=== PATIENT | male | born 1965 | race Caucasian/White ===

== ENCOUNTER 2017-09-06 10:30 | Inpatient (IN) | payer OTHER ==
[2017-09-06 11:09] LABS: PLATELET COUNT 220 10^3/uL (150-400)
--- NOTE | 2017-09-06 11:10 | CPEKG ---
Heart Rate: 81 RR Interval: 741 P-R Interval: 168 QRSD Interval: 106 QT Interval: 424 QTC Interval: 493 P [place]: 46 QRS [place]: 98 T Wave [place]: -12 EKG Severity - ABNORMAL ECG - EKG Impression: SINUS RHYTHM EKG Impression: CONSIDER RIGHT VENTRICULAR HYPERTROPHY EKG Impression: BORDERLINE T ABNORMALITIES, INFERIOR LEADS EKG Impression: BORDERLINE PROLONGED QT INTERVAL Electronically Signed By: Radha Chatman 06-Sep-2017 15:18:15
[2017-09-06] MEDS ORDERED: NS 1,000 ML IV ONE ×2 (11:35→11:46)
[2017-09-06 11:57] LABS: INR 1.14 (0.83-1.16); PROTIME(PATIENT) 14.8 SEC (12.0-15.0)
--- NOTE | 2017-09-06 12:27 | EDPHY ---
H & P Smoking Status: Never smoked Time Seen by Provider: 09/06/17 10:49 HPI/ROS: CHIEF COMPLAINT: Intentional drug overdose HISTORY OF PRESENT ILLNESS: 51-year-old male presents to the emergency department on M1 hold by ambulance after stating that he intentionally tried to overdose on medication in an attempt to kill himself. The patient admits to taking 25 tablets of 50 mg hydroxyzine and 25 tablets of 5 -7.5 mg Percocet around 6:30 p.m. last evening. He admits to also drinking alcohol. He states "it did not work ". He feels nauseous. He vomited several times last night. He denies abdominal pain. Denies chest pain or difficulty breathing. His states that he left a note stating that he was "sorry ". She called the police and they have been looking for him for the last 15 hr. Patient stills feels that he is suicidal. He states that he business transaction fell through yesterday. His is worried that he has underlying depression that has never been treated. He states he still feels nauseous. He denies abdominal pain. He was experiencing some numbness to the anterior aspect of his left thigh last week. He denies weakness in his upper or lower extremities. REVIEW OF SYSTEMS: Constitutional: No fever, no chills. Eyes: No double or blurry vision. ENT: No sore throat. Respiratory: No cough, no shortness of breath. Cardiac: No chest pain. Gastrointestinal: Nausea, vomiting. No abdominal pain or diarrhea. Genitourinary: No dysuria. Musculoskeletal: No neck or back pain. Skin: No rashes. Neurological: No headache. 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 No visible signs of trauma to his head. He is mentating normally and answering questions appropriately. Blood pressure 130/78, heart rate 90, respirations 16, 36.9 temperature, 92% on room air. at bedside. Eyes: Pupils equal and round. Extraocular motions are all intact. ENT: Mouth: Mucous membranes moist. Respiratory: No wheezing, rhonchi, or rales, lungs are clear to auscultation. Cardiovascular: Regular rate and rhythm. Gastrointestinal: Abdomen is soft and nontender, no masses, no rebound or guarding, bowel sounds normal. Neurological: Alert and oriented x 3, cranial nerves II through XII grossly intact Skin: Warm and dry, no rashes. Musculoskeletal: Nontender to palpate along the cervical, thoracic or lumbar spine. Neck is supple. Extremities: Full range of motion and no peripheral edema. Psychiatric: Patient is oriented X 3, there is no agitation. (KimberlynJune campos) Constitutional: Initial Vital Signs Temperature (C) 36.9 C 09/06/17 10:35 Heart Rate 90 09/06/17 10:35 Respiratory Rate 16 09/06/17 10:35 Blood Pressure 130/78 H 09/06/17 10:35 O2 Sat (%) 92 09/06/17 10:35 O2 Delivery Mode Room Air O2 (L/minute) 2 Allergies/Adverse Reactions: No Known Allergies Allergy (Unverified 09/06/17 10:35) Home Medications: Medication Instructions Recorded Herbals/Supplements -Info Only 1 ea PO DAILY 09/06/17 Naproxen Sodium [Aleve 220 MG (*)] 220 mg PO BID PRN 09/06/17 Medical Decision Making ED Course/Re-evaluation: 51-year-old male presents on M1 hold after intentional drug overdose. The patient still feels suicidal. Laboratory studies have been drawn. I spoke with poison Control, case #[id number], and they recommended cardiac monitoring for at least 6-8 hours associated with the hydroxyzine. Poison Control nurse, Dana, recommended that the patient be kept on a residential monitor for longer period of time since he is still symptomatic. The patient will be admitted to the ICU on an M1 hold for continued observation. When the patient is medically cleared, he will be evaluated by mental health. Laboratory studies reveal white blood cell count of 11.48. His hemoglobin and hematocrit are within normal range. Platelets are normal. Chemistries reveal a detectable acetaminophen level at 23 which will need to be repeated. AST is 81. ALT is normal. INR is normal at 1.14. Alcohol and salicylate 0. (June Hancock) This patient was seen and examined by me. He is drowsy, chest is clear to auscultation, cardiovascular regular rhythm and rate. He presents after a suicidal attempt with drowsiness. He is on a M1 hold and is certainly at high risk for suicide. I agree with the assessment and plan. (Radha Chatman) Differential Diagnosis: Depression including functional and major depression, situational depression, medication side effect, drugs and alcohol abuse. (June Hancock) Critical Care Time: Critical care time: 20 minutes (Radha Chatman) - Data Points Laboratory Results: Laboratory Results 09/06/17 10:40 09/06/17 10:40 Medications Given: Sodium Chloride (Ns) 1,000 mls @ 100 mls/hr IV CONT AUDREY Stop: 03/05/18 14:59 Last Admin: 09/06/17 15:22 Dose: 1,000 mls Acetylcysteine 8,000 mg/ (Dextrose) 1,040 mls @ 65 mls/hr IV ONCE ONE Stop: 09/07/17 12:29 Last Admin: 09/06/17 21:19 Dose: 1,040 mls Discontinued Medications Sodium Chloride (Ns) 1,000 mls @ 0 mls/hr IV ONCE ONE PRN Reason: Wide Open Stop: 09/06/17 11:36 Last Admin: 09/06/17 11:35 Dose: 1,000 mls Sodium Chloride (Ns) 1,000 mls @ 0 mls/hr IV ONCE ONE PRN Reason: Wide Open Stop: 09/06/17 11:47 Last Admin: 09/06/17 11:49 Dose: Not Given Acetylcysteine 12,000 mg/ (Dextrose) 260 mls @ 260 mls/hr IV ONCE ONE Stop: 09/06/17 16:29 Last Admin: 09/06/17 15:43 Dose: 260 mls Acetylcysteine 4,000 mg/ (Dextrose) 520 mls @ 130 mls/hr IV ONCE ONE Stop: 09/06/17 20:29 Last Admin: 09/06/17 16:51 Dose: 520 mls Departure - Departure Disposition: [facility] Acute Clinical Impression: Intentional drug overdose Qualifiers: Encounter type: initial encounter Qualified Code(s): T50.902A - Poisoning by unspecified drugs, medicaments and biological substances, intentional self-harm , initial encounter Condition: Fair
[2017-09-06 12:34] LABS: CREATINE KINASE 3073 IU/L (0-224)
[2017-09-06] MEDS ORDERED: PROMETHAZINE HCL 25 MG/ML INJ IVP PRN (14:49)
[2017-09-06] MEDS ORDERED: ACETYLCYSTEINE IV PROTOCOL 1 EACH MISC SCH (15:00)
[2017-09-06] MEDS ORDERED: NS 1,000 ML IV SCH (15:00)
[2017-09-06] MEDS ORDERED: ACETYLCYSTEINE IV ONE ×3 (15:30→20:30)
[2017-09-06] MEDS ORDERED: D5W IV ONE ×3 (15:30→20:30)
--- NOTE | 2017-09-06 16:03 | GHP ---
[f rep st] HISTORY AND PHYSICAL DATE OF ADMISSION: 09/06/2017 CHIEF COMPLAINT: Suicide attempt. HISTORY: The patient is a 51-year-old male, admitted to the ICU on an M1 hold after an intentional o verdose. At 6:30 last night, he intentionally took twenty-five 7.5 mg oxycodone containing Percocets including Tylenol as well as twenty-five 50 mg Vistaril tablets. He also drank some alcohol. He zafar s never had any chest pain or shortness of breath, and he felt quite well other than his depression. There were no physical complaints prior to this attempt. He did develop some nausea and vomiting. He left a note for his that said "I'm sorry" which was found by his , and she called the [facility] last night. They spent 15 hours before they were able to locate him. He was in his car in a par [place]. At this time, he is still suicidal. He complains of a business transaction that fell through yes terday as triggering this event. According to his , however, she feels he has had a more long-st anding untreated depression. He is currently feeling quite well with minimal nausea and otherwise wi thout complaint although still feeling despondent and somewhat suicidal. PAST MEDICAL HISTORY: Hyperlipidemia. MEDICATIONS: Red yeast rice. ALLERGIES: No known drug allergies. SOCIAL HISTORY: No smoking. Rare alcohol. Lives with his . 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 REVIEW OF SYSTEMS: Complete review of systems obtained. Review of systems negative on constitutiona l, HEENT, GI, pulmonary, cardiovascular, , hematology, skin, muscular, endocrine, psych except for positives and negatives as noted in HPI. FAMILY HISTORY: Mother of lung cancer. Father of an intracranial hemorrhage after a fall. PHYSICAL EXAMINATION: GENERAL: Well-developed, well-nourished male, in no acute distress. VITAL SI GNS: Temperature is 36.9, pulse 81, respirations initially 10, blood pressure 110/70, saturating 92% on room air. EYES: Normal conjunctivae. Pupils react to light. ENT: Normal ears, nose. Hearing intact. Normal teeth. Oropharynx moist. NECK: Trachea midline. No thyromegaly. CHEST: Normal respiratory effort. LUNGS: Clear to auscultation bilaterally. CARDIOVASCULAR: Regular rate, rhyth m. No murmur. No extremity edema. ABDOMEN: Soft, nontender. No hepatosplenomegaly. SKIN: Warm, dry, intact. No rash. MUSCULOSKELETAL: No cyanosis or clubbing. Strength 5/5 upper and lower ext remities. NEUROLOGIC: Cranial nerves intact. Normal sensation to light touch. PSYCH: Alert and o riented x3. Normal mood and affect. Normal judgment. Normal memory. LABORATORY DATA: White count 11.48, hematocrit 51.7, platelets 220. Sodium 142, potassium 5.0, chlo ride 101, bicarb 18, BUN 26, creatinine 1.2, glucose 118. LFTs are normal except for an AST of 81. CPK is elevated at 3073. Tylenol level at 10:40 a.m. today is 23. EKG viewed. My personal interpretation is significant deep anterior T-wave inversions. This case was discussed with June Hancock, emergency room physician minister assistant regarding emergency ro om course. Poison Control was called, [phone]. They recommended cardiac monitoring for at least 8 hours due to potential cardiac affects of Vistaril and repeat Tylenol testing. ASSESSMENT/PLAN: 1. Tylenol overdose. A Tylenol level of 2316 post ingestion is actually over the treatment line on the Tylenol normogram. In that case, treatment with N-acetylcysteine is indicated. I will initiate him on the 20-hour IV N-acetylcysteine protocol and follow serial LFTs, INR, and Tylenol levels. 2. Vistaril overdose. Risk of Vistaril includes QT prolongation and torsades. Will monitor him on telemetry and avoid additional QT prolonging agents. 3. Anterior T-wave inversions. These are concerning for possible ischemia. Although he denies any symptoms, will check a couple troponins and follow serial EKGs I wonder if the anticholinergic effect of the Vistaril may be causing some EKG changes. He may benefit from an eventual stress test althou gh this could potentially be deferred to outpatient. 4. Suicidality and depression. This is ongoing. Continue M1 hold and ICU stay. 5. Mild rhabdomyolysis. Anticipate he was down for a prolonged period of time. This is relatively mild. We will hydrate with IV fluids and follow serial CPKs and creatinine. CODE STATUS: Full. ADMISSION STATUS: Will admit to observation as I am hopeful he will improve by morning, be able disc harge to mental health disposition at that time. DEEP VENOUS THROMBOSIS PROPHYLAXIS: He is low risk. Will hold off on any pharmacologic prophylaxis. /[id number]/MODL
[2017-09-07 06:35] LABS: PLATELET COUNT 158 10^3/uL (150-400)
[2017-09-07 06:38] LABS: INR 1.28 (0.83-1.16); PROTIME(PATIENT) 16.2 SEC (12.0-15.0)
[2017-09-07] MEDS ORDERED: PROTOCOL K PHOSPHATE 1 DOSE IV PRN (08:44)
--- NOTE | 2017-09-07 08:58 | CPEKG ---
Heart Rate: 73 RR Interval: 822 P-R Interval: 164 QRSD Interval: 102 QT Interval: 404 QTC Interval: 446 P [place]: 28 QRS [place]: 101 T Wave [place]: -55 EKG Severity - ABNORMAL ECG - EKG Impression: SINUS RHYTHM EKG Impression: CONSIDER RIGHT VENTRICULAR HYPERTROPHY EKG Impression: NONSPECIFIC T ABNORMALITIES, INFERIOR LEADS EKG Impression: QTc NO LONGER PROLONGED Electronically Signed By: Jase Seth 09-Sep-2017 08:20:58
--- NOTE | 2017-09-07 10:21 | PDMN ---
Medical Necessity Medical necessity: M153 drug ingestion/OD: Psychiatric risk status not acceptable for outpatient management: pt currently on M1 hold with ongoing SI, further monitoring and consults needed
[2017-09-07 11:37] LABS: CREATINE KINASE 6816 IU/L (0-224)
[2017-09-07] MEDS ORDERED: K PHOS 10 MMOL in D5W 250 ML IV ONE (12:00)
[2017-09-07 12:03] LABS: INR 1.23 (0.83-1.16); PROTIME(PATIENT) 15.7 SEC (12.0-15.0)
[2017-09-07 13:05] LABS: CREATINE KINASE 6094 IU/L (0-224)
[2017-09-07] MEDS ORDERED: ACETYLCYSTEINE IV PROTOCOL 1 EACH MISC SCH (14:00)
[2017-09-07] MEDS: TAMSULOSIN HCL 0.4 MG CAP PO SCH (14:35)
[2017-09-07] MEDS ORDERED: ACETYLCYSTEINE IV ONE (15:00)
[2017-09-07] MEDS ORDERED: D5W IV ONE (15:00)
--- NOTE | 2017-09-07 16:15 | ASMTCASEMG ---
Living Arrangements What is your living Answers: With Spouse arrangement? Who do you live with? Type Of Residence What kind of residence do Answers: House you live in? Discharge Plan Comments Coordination Status Comments Notes: Patient is a 51yo male who took an intentional overdose of tylenol, vistaril. Suicidality and depression are ongoing. Patient will need a TLC eval when patient is med clear. Patient is on an M1. Patient will d/c to mental health disposition. CM available for consult. Date Signed: 09/07/2017 04:14 PM Electronically Signed By:Ivonne Moreno LCSW
--- NOTE | 2017-09-07 18:39 | HOSPPROG ---
Hospitalist Progress Note Assessment/Plan: * Tylenol overdose -mild abnormalities of LFT and INR -d/w Poison control - since labs still abnormal - continue NAC until tomorrow am * Urinary retention -may be anti-cholinergic due to Vistaril overdose -whitmore placement was difficult - suspect element of BPH -start Flomax -voiding trials * Suicide attempt - on M1 hold * EKG changes - anterior TWI -no chest pain, no previous EKG -outpatient stress test -check lipids * Mild Rhabdo -continue IVF Subjective: Feeling a little more hopeful. at bedside. Objective: Vital Signs Temp Pulse Resp BP Pulse Ox 36.8 C 65 12 120/78 93 09/07/17 16:00 09/07/17 16:00 09/07/17 16:00 09/07/17 16:00 09/07/17 16:00 Laboratory Results 09/07/17 05:50 09/07/17 11:15 09/06/17 09/07/17 09/08/17 05:59 05:59 05:59 Intake Total 4166 1848 Output Total 2700 2550 Balance 1466 -702 PT 15.7 SEC (12.0-15.0) H 09/07/17 11:15 INR 1.23 (0.83-1.16) H 09/07/17 11:15 - Time Spent With Patient Time Spent with Patient: greater than 35 minutes Time Spent with Patient: Greater than 35 minutes spent on this patients care, greater than 50% of time spent counseling, educating, and coordinating care regarding the above mentioned plan. - Physical Exam Constitutional: no apparent distress, appears nourished, not in pain Respiratory: no respiratory distress Skin: No rash Neurologic: AAOx3, sensation intact bilaterally Psychiatric: interacting appropriately, not anxious, not encephalopathic, thought process linear ICD10 Worksheet Patient Problems: Problems Problem Status Onset Intentional drug overdose Acute
[2017-09-08 04:30] VITALS: RESP 13; O2SAT 92
[2017-09-08 05:44] LABS: INR 1.19 (0.83-1.16); PROTIME(PATIENT) 15.3 SEC (12.0-15.0)
[2017-09-08 06:06] LABS: CREATINE KINASE 4085 IU/L (0-224)
[2017-09-08] MEDS: TAMSULOSIN HCL 0.4 MG CAP PO SCH (08:01)
[2017-09-08 08:08] VITALS: BP 116/80; PULSE 80; TEMP 97.9
--- NOTE | 2017-09-08 09:06 | HOSPPROG ---
Hospitalist Progress Note Assessment/Plan: DIAGNOSES: -acute intentional overdose of multiple substances including Percocet, Vistaril , alcohol -acute rhabdomyolysis likely from being on floor for extended period of time due to his overdose -ongoing symptoms of depression untreated, now suicidal with several acute severe stressors in the past week The lily's AST (with normal ALT) is due to his rhabdomyolyis (seen in 93% of rhabdo patients with cpk > 1000. Etoh may also be a cause of some of the AST elevation. I do not think his AST elevation is caused by his tylenol ingestion. His rhabdo is resolving well and no renal insufficiency. At this time there is no specific laboratory or other abnormality indicating any further risk to internal organs or his physical health in other ways. His rhabdo should resolve over the next few days as on as he keeps hydrated. He is medically stable at this time for discharge from the acute care medical setting , but will need ongoing mental health care and with cough for mental health evaluation at this time PLANS: -He will need to ensure good oral fluid intake for next few days for complete resolution of rehabdo, but no further monitoring needed. 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 The patient and his both reviewed with me that he has had long symptoms of depression that he has not had evaluated or treated in the past. 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: All sinus with no arrhythmia Exam: alert oriented skin warm dry color ok resps not labored lungs clear BSs heart regular abd soft nondistended nontender, bowel sounds present limbs warm, no edema iv site ok Review of laboratory data: Electrolytes and renal function are normal CPK has trended down and is now at 4000 His liver enzymes show persistent very mild elevation AST without any elevations of ALT measurements, and with normal bilirubin: This is suggestive of affective his rhabdomyolysis and not consistent with a Tylenol or other ingestion mediated liver injury as that would have elevation of ALT equal to or greater than AST. Objective: Vital Signs Temp Pulse Resp BP Pulse Ox 36.6 C 80 13 116/80 92 09/08/17 08:00 09/08/17 08:00 09/08/17 04:00 09/08/17 08:00 09/08/17 04:00 Laboratory Results 09/07/17 05:50 09/08/17 05:26 09/07/17 09/08/17 09/09/17 06:59 06:59 06:59 Intake Total 4166 2631 Output Total 2700 3800 Balance 1466 -1169 PT 15.3 SEC (12.0-15.0) H 09/08/17 05:26 INR 1.19 (0.83-1.16) H 09/08/17 05:26 - Time Spent With Patient Time Spent with Patient: greater than 35 minutes Time Spent with Patient: Greater than 35 minutes spent on this patients care, greater than 50% of time spent counseling, educating, and coordinating care regarding the above mentioned plan. ICD10 Worksheet Patient Problems: Problems Problem Status Onset Intentional drug overdose Acute
--- NOTE | 2017-09-08 14:08 | ASMTCMCOM ---
CM Note CM Note Notes: Patient will be transferred to 3 behavioral health unit today. No further d/c needs. CM available if needs arise. Date Signed: 09/08/2017 02:07 PM Electronically Signed By:Ivonne Moreno LCSW
--- NOTE | 2017-09-08 15:10 | PDIAF ---
- Diagnosis Diagnosis: Suicide attempt, depression untreated, rhabdomyolysis Code Status: Full Code - Medication Management Discharge Medications: Medications to Continue on Transfer Tamsulosin HCl [Flomax 0.4 MG (*)] 0.4 mg PO DAILY cap 09/08/17 [Last Taken Unknown] Discharge Medications: Refer to the Discharge Home Medication list for PRN reason. PICC Care - Routine: N/A - Orders Services needed: Registered Nurse, Certified Metal Mine Inspector, Master Pss Delivery Professional Diet Recommendation: no restrictions on diet Diet Texture: Regular Texture Diet - Follow Up Care Current Providers and Referrals: NONE *PRIMARY CARE P,. [Primary Care Provider] -
--- NOTE | 2017-09-08 16:49 | PDDCSUM ---
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 Last night he had an intentional overdose with alcohol, Percocet, Vistaril. He was found on floor by his and there was a suicide note left behind. He is brought to the hospital where he aroused and had evidence of rhabdomyolysis which has been improving without any signs of renal failure. There been no other signs of complications. Initially he had a mild elevation of AST it just over 100, but he had very low Tylenol levels, normal ALT levels and normal bilirubin. This AST is felt to come from his rhabdomyolysis. At this time he is recovering quite well from a physical medical standpoint is not showing any signs of complications of his ingestions. There has been no arrhythmia, no other toxidrome present. He is felt stable medically for discharge from the acute care hospital but will require ongoing mental health care. I did have a long discussion with the patient and his at the bedside about his risks for future trouble, his need to engage in appropriate assessment and care for his mental health issues, and ongoing follow-up. I also did review with them that he should not engage in any significant physical exercise for approximately 2 weeks due to his rhabdomyolysis. He is to keep well hydrated in the meantime. He understands that as long he takes care of this the prognosis from his rhabdomyolysis is excellent. PENDING TEST RESULTS: -none MEDICATION CHANGES: -none FOLLOW-UP PLAN: The patient has been seen by the mental health deputy clerk of superior court and they recommended transfer to the inpatient Behavioral Health Unit, he is being discharged at this time for transfer to that unit for ongoing assessment of his depression and stressors and compensation strategies Greater than 35 minutes bedside and care coordination time today
== END 2017-09-08 16:40 | DRG 918 ==
LOC: EDUNIT# → EEVIPCON 10:30 → F2N 14:00
PROVIDERS: ADMIT Internal Medicine; ATTEND Internal Medicine
DX: T39.1X2A Poisoning by 4-Aminophenol derivatives, intentional self-harm, initial encounter (principal); T43.592A Poisoning by other antipsychotics and neuroleptics, intentional self-harm, initial encounter; T51.92XA Toxic effect of unspecified alcohol, intentional self-harm, initial encounter; M62.82 Rhabdomyolysis; R45.851 Suicidal ideations; R94.31 Abnormal electrocardiogram [ECG] [EKG]; R33.9 Retention of urine, unspecified; R11.2 Nausea with vomiting, unspecified; F32.9 Major depressive disorder, single episode, unspecified; E78.5 Hyperlipidemia, unspecified; Y92.810 Car as the place of occurrence of the external cause; Z63.79 Other stressful life events affecting family and household
CPT/HCPCS: 80305; G0378; G0480; J0132

== ENCOUNTER 2017-09-08 17:25 | Inpatient (IN) | payer OTHER ==
[2017-09-08] MEDS ORDERED: MAG HYDROX/AL HYDROX/SIMETH 30 ML UDCUP PO PRN (18:22)
[2017-09-08] MEDS ORDERED: LORazepam 0.5 MG TAB PO PRN (18:22)
[2017-09-08] MEDS ORDERED: ACETAMINOPHEN 325 MG TAB PO PRN ×2 (18:22→18:30)
[2017-09-08] MEDS ORDERED: MAGNESIUM HYDROXIDE 30 ML UDCUP PO PRN (18:22)
--- NOTE | 2017-09-09 07:47 | PDGENHP ---
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 In addition, he lost some business and funding related to business deals. This created a lot of stress and he became very depressed and anxious. He endorses suicidal ideation, but no specific plan. He has no guns. He is admitted to for mood stablization. History Information - Allergies/Home Medication List Allergies/Adverse Reactions: No Known Allergies Allergy (Unverified 09/06/17 10:35) Home Medications: Herbals/Supplements -Info Only 1 ea PO DAILY 09/08/17 [Last Taken Unknown] I have personally reviewed and updated: family history, medical history, social history, surgical history - Past Medical History hyperlipidemia Additional medical history: BPH - Surgical History Reports: no pertinent surgical hx - Family History Additional family history: mom had depression - Social History Smoking Status: Never smoked Alcohol Use: Rarely Drug Use: None Additional social history: . 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 Review of Systems Review of Systems: ROS: 10pt was reviewed & negative except for what was stated in HPI & below Physical Exam Physical Exam: Temp Pulse Resp BP Pulse Ox 36.6 C 114 H 14 119/79 92 09/09/17 06:00 09/09/17 06:00 09/09/17 06:00 09/09/17 06:00 09/09/17 06:00 Constitutional: no apparent distress Eyes: PERRL Ears, Nose, Mouth, Throat: moist mucous membranes Cardiovascular: regular rate and rhythym, no murmur, rub, or gallop Respiratory: no respiratory distress, clear to auscultation Gastrointestinal: normoactive bowel sounds, soft, non-tender abdomen Skin: warm Musculoskeletal: full muscle strength Neurologic: AAOx3 Psychiatric: interacting appropriately Assessment & Plan Assessment: Depression / Anxiety with suicidal ideation - Seems mostly situational related to work stress. He is on prn Ativan for anxiety, further anti-depressant regimen per psychiatry. BPH - cont flomax Full code Dispo - inpt [facility]
[2017-09-09] MEDS: TAMSULOSIN HCL 0.4 MG CAP PO SCH (08:54)
[2017-09-09] MEDS ORDERED: IBUPROFEN 200 MG TAB PO PRN (16:20)
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
[2017-09-10 06:46] VITALS: O2SAT 95
[2017-09-10] MEDS: buPROPion XL 150 MG TAB PO SCH (10:00)
[2017-09-10] MEDS: TAMSULOSIN HCL 0.4 MG CAP PO SCH (10:00)
--- NOTE | 2017-09-10 14:11 | SOAPPROG ---
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 Plan: 09/10/17 14:06 1. Patient has improved mood, denies feeling depressed, denies SI, no plan or intent to hurt himself. 2. Tolerating Wellbutrin w/o any complaints or SE's. 3. MD spoke at length with patient and his , and answered questions about various types of treatment including individual psychotherapy, group psychotherapy, IOP, residential tx, psychotropic meds. thought patient should go to residential program for "a couple weeks" to "get things back together." MD encouraged patient to start with individual therapy and psychiatrist and consider IOP after talking with his new providers. He agreed. 4. expressed concerns about how to help patient when he returned home. MD encouraged patient to share his very detailed safety plan with . They both felt "much better" after discussing this together and said she was "relieved" to know there was a safety plan in place. 5. CC will make referral for individual therapy and f/u appointment with new prescriber tomorrow. 6. Likely d/c on Monday or Monday Subjective: Met with patient, reviewed chart and d/w staff. Met with patient and his , Sandy. They both had a lot of questions, MD answered their questions to patient and his 's satisfaction. They were both 'very grateful" and found information "useful." Patient says he feels "better" today, denies any SI and says he doesn't feel depressed today. He says he is "looking forward" to "getting back to normal" and thinks that therapy and meds will "make a huge difference." is also optimistic that with mental health treatment things will start to "look better" for patient and his family. Objective: Vital Signs Temp Pulse Resp BP Pulse Ox 36.7 C 110 H 14 109/79 95 09/10/17 06:00 09/10/17 06:00 09/10/17 06:00 09/10/17 06:00 09/10/17 06:00 MSE: Affect: Euthymic Mood: "Better" TP: Linear, goal-directed TC: Denies any SI/HI, no AH/VH Insight/Judgment: Good - Time Spent With Patient Time Spent With Patient: 30" - Pending Discharge Pending Discharge Within 24 Hours: No Pending Discharge Within 48 Hours: No ICD10 Worksheet Patient Problems: Problems Problem Status Onset Intentional drug overdose Acute
[2017-09-11] MEDS: buPROPion XL 150 MG TAB PO SCH (08:37)
[2017-09-11] MEDS: TAMSULOSIN HCL 0.4 MG CAP PO SCH (08:37)
[2017-09-11 10:20] VITALS: PULSE 95
--- NOTE | 2017-09-11 14:46 | SOAPPROG ---
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 Plan: 09/10/17 14:06 1. Patient has improved mood, denies feeling depressed, denies SI, no plan or intent to hurt himself. 2. Tolerating Wellbutrin w/o any complaints or SE's. 3. MD spoke at length with patient and his , and answered questions about various types of treatment including individual psychotherapy, group psychotherapy, IOP, residential tx, psychotropic meds. thought patient should go to residential program for "a couple weeks" to "get things back together." MD encouraged patient to start with individual therapy and psychiatrist and consider IOP after talking with his new providers. He agreed. 4. expressed concerns about how to help patient when he returned home. MD encouraged patient to share his very detailed safety plan with . They both felt "much better" after discussing this together and said she was "relieved" to know there was a safety plan in place. 5. CC will make referral for individual therapy and f/u appointment with new prescriber tomorrow. 6. Likely d/c on Monday or Monday09/11/17 14:42 1. MD met with patient and his . has arranged the following aftercare appointments: -Dr. Joey Quintanilla (internal medicine) 09/12/17, at 3:30pm -Mindy Neumann, therapist, 09/13/17 at 11:30am -Jazmyn Emmanuel, psychiatrist, later this week 2. CC also provided patient with intake appointment in [facility] outpatient clinic on 09/13/17 at 9am to discuss IOP. 3. Patient and are "very happy" with the safety plan and aftercare plan. 4. Patient reports "doing well" with new medication, Wellbutrin, and denies any SE's or complaints. 5. D/C tomorrow at 11am Subjective: Met with patient, talked to , reviewed chart and d/w staff. Patient reports feeling "really good' this AM, denies feeling depressed, denies sadness, hopelessness and helplessness. Patient denies any thoughts, plan or intent to hurt himself or anyone else. He has reviewed his safety plan with his and both feel "good" about him leaving tomorrow. Objective: Vital Signs Temp Pulse Resp BP Pulse Ox 36.6 C 95 12 121/82 H 95 09/11/17 06:00 09/11/17 06:00 09/11/17 06:00 09/11/17 06:00 09/11/17 06:00 MSE: Affect: Euthymic Mood: "Really good" TP: Linear, goal-directed TC: Denies any SI/HI, no AH/VH Insight/Judgment: Good - Time Spent With Patient Time Spent With Patient: 25" - Pending Discharge Pending Discharge Within 24 Hours: No Pending Discharge Within 48 Hours: No ICD10 Worksheet Patient Problems: Problems Problem Status Onset Intentional drug overdose Acute
[2017-09-12 06:58] VITALS: BP 118/76; RESP 14; TEMP 97.6
[2017-09-12] MEDS: buPROPion XL 150 MG TAB PO SCH (08:14)
[2017-09-12] MEDS: TAMSULOSIN HCL 0.4 MG CAP PO SCH (08:14)
--- NOTE | 2017-09-13 00:11 | BDS ---
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 The respondent returned home in a lethargic state. He told the responding officer th at he took a combination of drugs with a small amount of alcohol at 1830 hours on 09/05/2017. He adm itted he was trying to kill himself." The patient was admitted to the ICU for medical stabilization and cleared on 09/07/2017, for mental health evaluation. Following this interview, the patient was p laced on a new hold which stated "on 09/05/2017, the patient took an intentional overdose of a combin ation of OxyContin, oxycodone, Vistaril and Valium, combined with gin and vodka mixed together with a mortar and pestle in purposeful suicide attempt. The patient had also left a suicide note to his wi fe stating, 'Love you always, so sorry', along with leaving the computer on, a sticky note with his p assword, his wallet and watch all lined up for his ". ADMITTING DIAGNOSES: 1. Major depressive disorder, single episode, severe, without psychotic features. 2. Psychosocial stressors include recent business setbacks, financial insecurity, unstable employmen t, grief and loss over the of his best friend a week ago. PHYSICAL EXAMINATION: Please see Dr. Nichole Moore' H and P for further details. LABORATORY: Done in the [facility] ED on 09/07/2017, on the day he was discharged from the ICU: His wh ite cell count 7.02, hemoglobin 14.7, hematocrit 43.1, platelet count was 158. PT and INR were 16.2 and 1.28. His sodium level was 139, potassium was 3.6, chloride was 105, glucose was 101, calcium wa s 8.5, AST was 121, ALT was 57, alkaline phosphatase was 37. Creatine kinase was 6816, CK-MB was 11. 3. Troponin was less than 0.012. Total protein was 6.0, albumin was 3.4. His cholesterol on 2017, was 173, LDL was 110, VLDL was 22, HDL was 41. TSH was 2.24. His acetaminophen level was unde tected on 09/07/2017. HOSPITAL COURSE: This MD evaluated the patient after he was admitted to the inpatient behavioral ser vices unit on . His mood was much brighter, he was more social, interactive with peers, talka tive. He was cheerful, pleasant and cooperative. He denied feeling depressed any longer. He stated he no longer had thoughts about wanting to hurt himself or end his life. He said that he was lookin g forward to getting into outpatient mental health treatment and getting his life "back on track". Kimberly solis said that he did want to start taking medications; this MD reviewed the risks, benefits and side ef fects of multiple antidepressant medications, including Wellbutrin XL which is what the patient event ually agreed to take after reviewing the risks, benefits, and side effects of this medication. The p atient consented to an immediate trial of Wellbutrin. He was started on Wellbutrin XL 150 mg p.o. da trina. On subsequent days, patient denied any complaints or side effects due to the medication, stated that he felt "better" and wanted to stay on the medication. The patient said that he is "looking fo rward to getting back to normal" and thinks that therapy and medications will make "a huge difference ". This MD met with the patient's on numerous occasions including a lengthy conversation with both the and the over the weekend. said that she was optimistic [facility] help things to start to "look better for the patient and the family" although she had some reservations about him coming home. and patient had detailed conversations about his safety pl an. The also called various providers to try to get the earliest possible aftercare appointment s, and she was able to set up an appointment on day of discharge with the patient's internal medicine doctor, Joey Quintanilla, on 09/12/2017, at 3:30 p.m., and with an individual therapist on 08/31, at 11:30 a.m., named Mindy Neumann. The critical care nurse practitioner on the unit also gave the patient an i ntake appointment with [facility] in the outpatient clinic for possible IOP admission, and the patient's w linda was able to contact Jazmyn Emmanuel, local psychiatrist in private practice, who was willing to see t he patient on , 09/14/2017. So, the family was very happy that they were able to get so many appointments in such a short period of time. They also said they were extremely grateful for the time that the staff on the unit had robert en to help the patient. Patient said he benefitted greatly from attending groups, from interaction w ith other peers and with staff. They both felt that they received a high quality of care, and the wi justus said that she felt very relieved that she got so much information in such a short period of time, because both the patient and his wanted to understand "all of our options and make the best deci sions possible". The patient and said they are both "very happy" with the patient's safety plan and with his aftercare plan. The patient did sign in voluntarily when his mental health hold d in order to stay an extra day so that his and the critical care nurse practitioner could finalize his aftercar e plan. DISCHARGE MEDICATIONS: At the time of discharge, the patient was prescribed Wellbutrin XL 150 mg p.o . daily, 30 tabs, no refills. He was given a prescription for Flomax 0.4 mg p.o. daily; this was pre scribed for him when he was in the ED. He said he was going to follow up with his primary care physi juan manuel to determine how long he would need to stay on this medication. DISCHARGE DIAGNOSES: 1. Major depressive disorder, single episode, severe, without psychotic features. 2. Psychosocial stressors include recent business setbacks, financial insecurity, grief and loss ove r recent of his best friend. CONDITION AT DISCHARGE: Patient was in stable condition. He reported he was in a "good" mood. He d enied any thoughts, plans or intents to hurt himself or anyone else. He denied feeling depressed. ATTITUDE AT DISCHARGE: Patient said that he was "positive", "optimistic" and "excited" about startin g mental health treatment and getting his life back to "normal." FOLLOWUP CARE: The patient has appointment on day of discharge with Dr. Joey Quintanilla, his internal me dicine provider at 3:30 p.m. on 09/12/2017. He is seeing Mindy Neumann, therapist, on Monday 018, at 11:30 a.m. He also has an intake appointment with the outpatient clinic at [facility] on Monday09/13/2017, at 9 a.m., and an appointment with Jazmyn Emmanuel, outpatient psychiatr ist in private practice, on 09/14/2017. /[id number]/MODL
== END 2017-09-12 11:10 | disposition home or self-care (01) | DRG 885 ==
LOC: BBEH 17:25
PROVIDERS: ADMIT Psychiatry & Neurology Psychiatry; ATTEND Psychiatry & Neurology Psychiatry
DX: F33.2 Major depressive disorder, recurrent severe without psychotic features (principal); E78.5 Hyperlipidemia, unspecified; N40.0 Benign prostatic hyperplasia without lower urinary tract symptoms